=== PATIENT | female | born 1965 | race Caucasian/White ===

== ENCOUNTER → 2016-12-13 | Outpatient (CLI) | payer BC ==
[~2016-12-13] MED LIST: ALBUAER2 INH; AMLH/550 PO; CETITAB27 PO; EZET10TA41 PO; HYZ/50125 PO; LEVO88TA PO; NSNN50 NAE; POTA-327 PO; PRM625 PO; PROM25TA16; PRT40 PO; SYMIN160 INH; VALA500T39
--- NOTE | 2016-12-13 16:58 | DIAGNOSTIC IMAGING REPORT ---
ULTRASOUND RIGHT VENOUS DOPP LOWER EXT UNILAT CLINICAL HISTORY: Right leg swelling COMPARISON STUDY: No previous studies for comparison. FINDINGS: Real-time and color flow Doppler imaging were performed. Flow was seen within the femoral, popliteal and calf veins with no intraluminal thrombus demonstrated. The saphenous vein is patent. IMPRESSION: No evidence of right lower extremity DVT. Electronically signed by: Ismael Dickey M.D. 12/13/2016 4:57 PM Dictated Date/Time: 12/13/2016 4:56 PM
[2016-12-13 17:03] LABS: URINE APPEARANCE CLEAR (CLEAR); URINE BILIRUBIN NEG (NEG); URINE COLOR YELLOW; URINE NITRITE NEG (NEG); URINE SPECIFIC GRAVITY 1.017 (1.000-1.030); UROBILINOGEN NEG (NEG)
[2016-12-13 17:05] LABS: MANUAL MICROSCOPIC REQUIRED? NO; REVIEW REQ? NO
[2016-12-13 17:15] LABS: BLOOD UREA NITROGEN 14 mg/dl (7-18); BUN/CREATININE RATIO 23.9 (10-20); CALCIUM 8.7 mg/dl (8.5-10.1); CARBON DIOXIDE 28 mmol/L (21-32); CHLORIDE 106 mmol/L (98-107); GLUCOSE 86 mg/dl (70-99); POTASSIUM 3.9 mmol/L (3.5-5.1); SODIUM 142 mmol/L (136-145)
== END | disposition home or self-care (01) ==
LOC: C.ULTR 16:12
PROVIDERS: ATTEND Allergy & Immunology Allergy
DX: M79.606 Pain in leg, unspecified (principal); M79.89 Other specified soft tissue disorders; R25.2 Cramp and spasm; R10.9 Unspecified abdominal pain

== ENCOUNTER → 2016-12-19 | Outpatient (CLI) | payer BC ==
--- NOTE | 2016-12-19 13:12 | DIAGNOSTIC IMAGING REPORT ---
KUB HISTORY: N20.0 [id number] COMPARISON: KUB 02/28/2016. FINDINGS: The bowel gas pattern is unremarkable. There are no dilated loops of small bowel to suggest an obstruction. No change in the bilateral nephrolithiasis. Dominant stone within the lower pole of the right kidney measures 5 mm. No ureteral or bladder calculi. Multiple pelvic surgical clips as well as suture material is again noted. No pneumoperitoneum or pneumatosis. IMPRESSION: Stable bilateral nephrolithiasis. Electronically signed by: Tanmay Caraballo M.D. 12/19/2016 1:10 PM Dictated Date/Time: 12/19/2016 1:09 PM
== END | disposition home or self-care (01) ==
LOC: C.RAD 12:42
PROVIDERS: ATTEND Urology
DX: N20.0 Calculus of kidney (principal)

== ENCOUNTER → 2017-01-14 | Outpatient (CLI) | payer BC | END | disposition home or self-care (01) | LOC: C.LAB 17:07 | PROVIDERS: ATTEND Nurse Practitioner Family | DX: N20.0 Calculus of kidney (principal); R33.9 Retention of urine, unspecified ==

== ENCOUNTER → 2017-01-19 | Outpatient (CLI) | payer BC ==
[2017-01-19 09:18] LABS: BASO % 0.4 %; BASO ABS # 0.03 K/uL (0-0.2); COMPLETE YES; EOS % 5.1 %; HEMATOCRIT 38.9 % (37-47); IG% 0.1 %; LYMPH % 37.4 %; LYMPH ABS # 2.62 K/uL (1.2-3.4); MEAN CELL VOLUME 88.2 fL (80-100); MEAN CORPUSCULAR HEMOGLOBIN 30.4 pg (25-34); MEAN CORPUSCULAR HGB CONC 34.4 g/dl (32-36); MEAN PLATELET VOLUME 9.5 fL (7.4-10.4); MONO % 9.3 %; NEUT % 47.7 %; PLATELET COUNT 235 K/uL (130-400); RED BLOOD COUNT 4.41 M/uL (4.2-5.4)
[2017-01-19 10:12] LABS: ALT/SGPT 24 U/L (12-78); AST/SGOT 20 U/L (15-37); BLOOD UREA NITROGEN 13 mg/dl (7-18); BUN/CREATININE RATIO 17.5 (10-20); CALCIUM 8.7 mg/dl (8.5-10.1); CARBON DIOXIDE 31 mmol/L (21-32); CHLORIDE 107 mmol/L (98-107); CREATININE 0.77 mg/dl (0.60-1.20); GLUCOSE 93 mg/dl (70-99); POTASSIUM 3.7 mmol/L (3.5-5.1); SODIUM 145 mmol/L (136-145)
[2017-01-19 10:28] LABS: ALKALINE PHOSPHATASE 55 U/L (45-117); CHOLESTEROL 154 mg/dl (0-200); CHOLESTEROL/HDL RATIO 1.7; HDL CHOLESTEROL 93 mg/dl; LDL CHOLESTEROL CALCULATED 49 mg/dl; TRIGLYCERIDES 62 mg/dl (0-150); VERY LOW DENSITY LIPOPROT CALC 12 mg/dl
== END | disposition home or self-care (01) ==
LOC: C.LAB 08:38
PROVIDERS: ATTEND Internal Medicine Pulmonary Disease
DX: J45.909 Unspecified asthma, uncomplicated (principal); E78.00 Pure hypercholesterolemia, unspecified; I10 Essential (primary) hypertension; E03.9 Hypothyroidism, unspecified

== ENCOUNTER → 2017-07-03 | Outpatient (CLI) | payer BC | END | disposition home or self-care (01) | LOC: C.RDSM 15:55 | PROVIDERS: ATTEND Orthopaedic Surgery Sports Medicine | DX: M65.4 Radial styloid tenosynovitis [de Quervain] (principal); M25.512 Pain in left shoulder ==

== ENCOUNTER → 2017-09-13 | Outpatient (CLI) | payer BC ==
--- NOTE | 2017-09-16 07:49 | MAMMOGRAPHY REPORT ---
BILATERAL DIGITAL SCREENING MAMMOGRAM TOMOSYNTHESIS WITH CAD: 09/13/2017 CLINICAL HISTORY: Routine screening. Patient has no complaints. TECHNIQUE: Breast tomosynthesis in addition to standard 2D mammography was performed. Current study was also evaluated with a Computer Aided Detection (CAD) system. COMPARISON: Comparison is made to exams dated: 09/07/2016 mammogram, 09/23/2015 mammogram, 09/12/2015 ultrasound, 09/12/2015 mammogram, 09/05/2015 mammogram - [facility], and 02/04/2009. BREAST COMPOSITION: The tissue of both breasts is almost entirely fatty. FINDINGS: No suspicious masses, calcifications, or areas of architectural distortion are noted in ei ther breast. There has been no significant interval change compared to prior exams. Scattered bilat eral benign-appearing calcifications are not significantly changed. A biopsy marker clip is again no allison in the right upper outer quadrant. A biopsy marker clip is again noted in the left breast at víctor roximately 8:00. Prominent bilateral axillary lymph nodes are stable compared to multiple prior exam s including the 2009 and 2010 exams. IMPRESSION: ACR BI-RADS CATEGORY 2: BENIGN There is no mammographic evidence of malignancy. A 1 year screening mammogram is recommended. The pa tient will receive written notification of the results. Approximately 10% of breast cancers are not detected with mammography. A negative mammographic report should not delay biopsy if a clinically suggestive mass is present. Key Taveras M.D. /:09/13/2017 13:30:35 Rubber Engraver: Candace REYES,R, M, [facility] letter sent: Normal 1/2 BI-RADS Code: ACR BI-RADS Category 2: Benign
== END | disposition home or self-care (01) ==
LOC: C.MAMM 09:43
PROVIDERS: ATTEND Obstetrics & Gynecology
DX: Z12.31 Encounter for screening mammogram for malignant neoplasm of breast (principal)

== ENCOUNTER → 2017-11-07 | Outpatient (CLI) | payer BC ==
[2017-11-07 17:22] LABS: BASO % 0.5 %; BASO ABS # 0.03 K/uL (0-0.2); EOS ABS # 0.49 K/uL (0-0.5); HEMATOCRIT 39.7 % (37-47); HEMOGLOBIN 12.8 g/dL (12.0-16.0); IG# 0.01 K/uL (0.00-0.02); LYMPH % 44.3 %; LYMPH ABS # 2.73 K/uL (1.2-3.4); MEAN CORPUSCULAR HGB CONC 32.2 g/dl (32-36); MEAN PLATELET VOLUME 9.7 fL (7.4-10.4); MONO % 8.6 %; MONO ABS # 0.53 K/uL (0.11-0.59); NEUT % 38.4 %; NEUT ABS # 2.37 K/uL (1.4-6.5); PLATELET COUNT 260 K/uL (130-400); RED CELL DISTRIBUTION WIDTH CV 12.6 % (11.5-14.5); RED CELL DISTRIBUTION WIDTH SD 42.4 fL (36.4-46.3); WHITE BLOOD COUNT 6.16 K/uL (4.8-10.8)
[2017-11-07 17:51] LABS: ALBUMIN 3.2 gm/dl (3.4-5.0); ALT/SGPT 20 U/L (12-78); AST/SGOT 12 U/L (15-37); BLOOD UREA NITROGEN 14 mg/dl (7-18); CALCIUM 8.6 mg/dl (8.5-10.1); CARBON DIOXIDE 30 mmol/L (21-32); CREATININE 0.82 mg/dl (0.60-1.20); GLUCOSE 85 mg/dl (70-99); POTASSIUM 4.1 mmol/L (3.5-5.1); SODIUM 137 mmol/L (136-145)
[2017-11-07 18:02] LABS: ALKALINE PHOSPHATASE 57 U/L (45-117); TOTAL PROTEIN 6.7 gm/dl (6.4-8.2)
== END | disposition home or self-care (01) ==
LOC: C.LAB1850 16:24
PROVIDERS: ATTEND Internal Medicine Pulmonary Disease
DX: E03.9 Hypothyroidism, unspecified (principal)

== ENCOUNTER → 2018-05-22 | Outpatient (CLI) | payer BC ==
[~2018-05-22] MED LIST changes: -VALA500T39; +VALA500T41
--- NOTE | 2018-05-22 10:00 | DIAGNOSTIC IMAGING REPORT ---
R WRIST MIN 3 VIEWS ROUTINE CLINICAL HISTORY: M25.531,M25.532, M79.644,M79.645 pain COMPARISON: None. DISCUSSION: The bones and joint spaces appear intact. There is no evidence of fracture, dislocation or bony disease. There is no evidence for soft tissue swelling. IMPRESSION: Negative study. The above report was generated using voice recognition software. It may contain grammatical, syntax or spelling errors. Electronically signed by: Jaya Kebede M.D. 05/22/2018 9:59 AM Dictated Date/Time: 05/22/2018 9:57 AM
--- NOTE | 2018-05-22 10:03 | DIAGNOSTIC IMAGING REPORT ---
R HAND MIN 3 VIEWS ROUTINE CLINICAL HISTORY: 53 years-old Female presenting with M25.531,M25.532, M79.644,M79.645 bilateral hand pain and wrist and thumb pain. TECHNIQUE: Frontal, oblique, lateral views of the right hand were obtained. COMPARISON: Comparison made to plain radiographs of the left hand performed same day. FINDINGS: No acute fracture or malalignment. Joint space loss, central erosion, and osteophytosis at the distal interphalangeal joint of the fifth finger. No significant degenerative change in the carpus or at the first carpometacarpal joint. No radiographic soft tissue abnormality. 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 No acute osseous injury. Electronically signed by: Per Solorzano M.D. 05/22/2018 10:01 AM Dictated Date/Time: 05/22/2018 9:57 AM
--- NOTE | 2018-05-22 10:03 | DIAGNOSTIC IMAGING REPORT ---
L WRIST MIN 3 VIEWS ROUTINE CLINICAL HISTORY: M79.644 Pain of both [id number] Acute pain of both wrists COMPARISON: None. DISCUSSION: The bones and joint spaces appear intact. There is no evidence of fracture, dislocation or bony disease. There is no evidence for soft tissue swelling. IMPRESSION: Negative study. The above report was generated using voice recognition software. It may contain grammatical, syntax or spelling errors. Electronically signed by: Jaya Kebede M.D. 05/22/2018 10:01 AM Dictated Date/Time: 05/22/2018 10:00 AM
--- NOTE | 2018-05-22 10:05 | DIAGNOSTIC IMAGING REPORT ---
L HAND MIN 3 VIEWS ROUTINE CLINICAL HISTORY: M79.644 Pain of both thumbsBoth COMPARISON: None. DISCUSSION: The bones and joint spaces appear intact. There is no evidence of fracture, dislocation or bony disease. There is no evidence for soft tissue swelling. IMPRESSION: Negative study. The above report was generated using voice recognition software. It may contain grammatical, syntax or spelling errors. Electronically signed by: Jaya Kebede M.D. 05/22/2018 10:04 AM Dictated Date/Time: 05/22/2018 10:02 AM
== END | disposition home or self-care (01) ==
LOC: C.RAD1850 09:41
PROVIDERS: ATTEND Internal Medicine Pulmonary Disease
DX: M25.531 Pain in right wrist (principal); M25.532 Pain in left wrist; M79.644 Pain in right finger(s); M79.645 Pain in left finger(s)

== ENCOUNTER 2021-06-22 08:32 | Observation (INO) ==
--- NOTE | 2021-06-07 13:33 | PAT Medication Instructions ---
Medication Instructions Date of Service June 07, 2021 Home Medications Medication Instructions Recorded promethazine 25 mg tablet 25 mg PO Q6H PRN #60 tab 04/13/20 budesonide-formoterol HFA 160 2 puff INHALATION BID #3 inhaler 03/15/21 mcg-4.5 mcg/actuation aerosol inhaler pantoprazole 40 mg tablet,delayed 40 mg PO QAM #90 tab 06/06/21 release albuterol sulfate 90 mcg/actuation aerosol inhaler 2 puffs INHALATION Q4H PRN mometasone 50 mcg/actuation nasal spray (Nasonex) 2 sprays INTNAS DAILY PRN multivitamin (Daily Multi-Vitamin) 1 tab PO QPM sulfacetamide sodium 10 % eye drops 2 drp OP .INSTILL 2 DROP 4 eliot PRN aspirin 81 mg tablet,delayed release 81 mg PO QPM valacyclovir 500 mg tablet 500 mg PO BID PRN ] promethazine 25 mg tablet 25 mg PO Q6H PRN ascorbic acid (vitamin C) 1,000 mg tablet (Vitamin C) 1 g PO QPM biotin 5,000 mcg disintegrating tablet 5,000 mcg PO QPM cetirizine 5 mg-pseudoephedrine ER 120 mg tablet,extended release,12hr (Zyrtec- D) 1 tab PO Q12H PRN conjugated estrogens 0.625 mg tablet (Premarin) 0.625 mg PO QPM cyanocobalamin (vitamin B-12) 1,000 mcg tablet 1,000 mcg PO QPM meloxicam 15 mg tablet 15 mg PO QPM omega 9-bqs-zsd-fish oil 1,000 mg (120 mg-180 mg) capsule (Fish Oil) 1 cap PO QPM vitamin A 2,400 mcg capsule 8,000 unit PO QPM budesonide-formoterol HFA 160 mcg-4.5 mcg/actuation aerosol inhaler 2 puff INHALATION BID amiloride 5 mg-hydrochlorothiazide 50 mg tablet 1 tab PO QAM ezetimibe 10 mg-simvastatin 40 mg tablet 1 tab PO PM famotidine 20 mg tablet 20 mg PO HS levothyroxine 88 mcg tablet 88 mcg PO QAM losartan 50 mg tablet 50 mg PO PM potassium chloride 10 mEq tablet,extended release 10 meq PO PM pantoprazole 40 mg tablet,delayed release 40 mg PO QAM ASK your surgeon for instructions meloxicam 15 mg tablet 15 mg PO QPM ASK your prescriber and surgeon aspirin 81 mg tablet,delayed release 81 mg PO QPM STOP taking 2 weeks before surgery biotin 5,000 mcg disintegrating tablet 5,000 mcg PO QPM omega 4-hbf-juk-fish oil 1,000 mg (120 mg-180 mg) capsule (Fish Oil) 1 cap PO QPM vitamin A 2,400 mcg capsule 8,000 unit PO QPM DO NOT take the morning of surgery cetirizine 5 mg-pseudoephedrine ER 120 mg tablet,extended release,12hr (Zyrtec- D) 1 tab PO Q12H PRN amiloride 5 mg-hydrochlorothiazide 50 mg tablet 1 tab PO QAM Take morning of surgery With a small sip of water, OTHERWISE NOTHING TO EAT OR DRINK AFTER MIDNIGHT: albuterol sulfate 90 mcg/actuation aerosol inhaler 2 puffs INHALATION Q4H PRN (use if needed; please bring with you to hospital day of surgery if possible) mometasone 50 mcg/actuation nasal spray (Nasonex) 2 sprays INTNAS DAILY PRN (if needed) sulfacetamide sodium 10 % eye drops 2 drp OP .INSTILL 2 DROP 4 times PRN (if needed) valacyclovir 500 mg tablet 500 mg PO BID PRN (if needed) promethazine 25 mg tablet 25 mg PO Q6H PRN (if needed) budesonide-formoterol HFA 160 mcg-4.5 mcg/actuation aerosol inhaler 2 puff INHALATION BID levothyroxine 88 mcg tablet 88 mcg PO QAM pantoprazole 40 mg tablet,delayed release 40 mg PO QAM Take evening before surgery albuterol sulfate 90 mcg/actuation aerosol inhaler 2 puffs INHALATION Q4H PRN (if needed) mometasone 50 mcg/actuation nasal spray (Nasonex) 2 sprays INTNAS DAILY PRN (if needed) multivitamin (Daily Multi-Vitamin) 1 tab PO QPM sulfacetamide sodium 10 % eye drops 2 drp OP .INSTILL 2 DROP 4 times PRN (if needed) valacyclovir 500 mg tablet 500 mg PO BID PRN (if needed) promethazine 25 mg tablet 25 mg PO Q6H PRN (if needed) ascorbic acid (vitamin C) 1,000 mg tablet (Vitamin C) 1 g PO QPM cetirizine 5 mg-pseudoephedrine ER 120 mg tablet,extended release,12hr (Zyrtec- D) 1 tab PO Q12H PRN (if needed) conjugated estrogens 0.625 mg tablet (Premarin) 0.625 mg PO QPM (unless surgeon directs otherwise) cyanocobalamin (vitamin B-12) 1,000 mcg tablet 1,000 mcg PO QPM budesonide-formoterol HFA 160 mcg-4.5 mcg/actuation aerosol inhaler 2 puff INHALATION BID ezetimibe 10 mg-simvastatin 40 mg tablet 1 tab PO PM famotidine 20 mg tablet 20 mg PO HS losartan 50 mg tablet 50 mg PO PM potassium chloride 10 mEq tablet,extended release 10 meq PO PM Other Notes If you have any questions please call us at [phone] or [phone] or [phone] or [phone]
--- NOTE | 2021-06-08 15:04 | Anesthesiology Consultation ---
Date of Service June 08, 2021 Assessment & Plan (1) Encounter for pre-operative examination: Chart Review Chart Review: Acceptable Risk for Surgery (pending preop Covid testing results ) and Patient seen in Pre Admission Testing Per PAT appt on 06/08/21, patient was recently at [facility] wears mask in public. No known Covid positive contacts or Covid related symptoms. No known Covid infection in the past 90 days. Pt is vaccinated for Covid. Preop Covid testing scheduled 06/20/21 = will await results. Educated on importance of self quarantining, social distancing and wearing mask in public for the patient one week prior to surgery and after Covid testing done Teaching & Discussion Pre-Anesthesia Teaching/Discussion Notes: Instructed NPO after midnight before surgery,except medications with 15 cc of water. Medication instructions provided according to the PAT guidelines. History Surgery Operation Date: 06/22/21 07:30 Proposed Procedures p Cystoscopy, Ureteronephroscopy, Retrograde Pyelogram, With Possible Ureteral Dilation, Laser Destruction or Extraction of the Stone, Insertion or Exchange of Stent Catheter - Right - Domingo Laird MD Height/Weight Height: 5 ft 3 in Weight: 81.7 kg Allergies Allergy/AdvReac Type Severity Reaction Status Date / Time amoxicillin Allergy Severe Difficulty Verified 05/29/21 15:52 Breathing azithromycin Allergy Severe Difficulty Verified 05/29/21 15:52 Breathing Iodinated Contrast Media Allergy Severe Difficulty Verified 05/29/21 15:52 Breathing codeine AdvReac Intermediate PT. GETS Verified 05/29/21 15:52 HYPER metronidazole [From Flagyl] AdvReac Mild Nausea Verified 05/29/21 15:52 Medications Home Medications Medication Instructions Recorded Confirmed Last Taken albuterol sulfate 90 mcg/actuation 2 puffs INHALATION Q4H PRN gm 05/15/19 Unknown aerosol inhaler mometasone 50 mcg/actuation nasal 2 sprays INTNAS DAILY PRN 05/15/19 05/29/21 Unknown spray (Nasonex) multivitamin (Daily Multi-Vitamin) 1 tab PO QPM 05/15/19 05/29/21 05/10/20 21:00 sulfacetamide sodium 10 % eye drops 2 drp OP .INSTILL 2 DROP 4 eliot PRN 05/15/19 05/29/21 05/10/20 08:00 #15 ml aspirin 81 mg tablet,delayed 81 mg PO QPM tab 06/26/19 05/29/21 05/10/20 21:00 release valacyclovir 500 mg tablet 500 mg PO BID PRN #10 tab 06/26/19 05/29/21 Unknown promethazine 25 mg tablet 25 mg PO Q6H PRN #60 tab 04/13/20 05/29/21 05/11/20 06:00 ascorbic acid (vitamin C) 1,000 mg 1 g PO QPM 05/02/20 05/29/21 05/10/20 08:00 tablet (Vitamin C) biotin 5,000 mcg disintegrating 5,000 mcg PO QPM 05/02/20 05/29/21 05/10/20 21:00 tablet cetirizine 5 mg-pseudoephedrine ER 1 tab PO Q12H PRN 05/02/20 05/29/21 05/10/20 08:00 120 mg tablet,extended release,12hr (Zyrtec-D) conjugated estrogens 0.625 mg 0.625 mg PO QPM 05/02/20 05/29/21 05/10/20 21:00 tablet (Premarin) cyanocobalamin (vitamin B-12) 1,000 mcg PO QPM 05/02/20 05/29/21 05/10/20 21:00 1,000 mcg tablet meloxicam 15 mg tablet 15 mg PO QPM 05/02/20 05/29/21 05/10/20 21:00 omega 3-bkk-tqk-fish oil 1,000 mg 1 cap PO QPM 05/02/20 05/29/21 05/10/20 21:00 (120 mg-180 mg) capsule (Fish Oil) vitamin A 2,400 mcg capsule 8,000 unit PO QPM 05/02/20 05/29/21 05/10/20 21:00 budesonide-formoterol HFA 160 2 puff INHALATION BID #3 inhaler 03/15/21 05/29/21 Unknown mcg-4.5 mcg/actuation aerosol inhaler amiloride 5 mg-hydrochlorothiazide 1 tab PO QAM 05/29/21 05/29/21 Unknown 50 mg tablet ezetimibe 10 mg-simvastatin 40 mg 1 tab PO PM 05/29/21 05/29/21 Unknown tablet famotidine 20 mg tablet 20 mg PO HS 05/29/21 05/29/21 Unknown levothyroxine 88 mcg tablet 88 mcg PO QAM 05/29/21 05/29/21 Unknown losartan 50 mg tablet 50 mg PO PM 05/29/21 05/29/21 Unknown potassium chloride 10 mEq 10 meq PO PM 05/29/21 05/29/21 Unknown tablet,extended release pantoprazole 40 mg tablet,delayed 40 mg PO QAM #90 tab 06/06/21 Unknown release Past Medical History Medical History Asthma USED RESCUE INHALER LAST 3 WEEKS AGO Well controlled and stable with Symbicort Chronic nausea Environmental and seasonal allergies GERD (gastroesophageal reflux disease) Well controlled and stable Hx of cold sores No recent issues Hx of endometriosis S/p hysterectomy Still had additional laparoscopies post hysterectomy Symptoms currently stable Hx of vertigo Hyperlipidemia Hypertension Hypothyroidism Other amnesia 2010 RAPID TRANSIENT AMNESIA No issues since that time Exercise / Class Metabolic Activity II 4-5 Yardwork/Stairs/Walk up hill (one flight of stairs - no chest pain or SOB ) Past Family History Family History Mother Diabetes High cholesterol Hypertension Family history of diabetes mellitus Father Diabetes High cholesterol Cardiac disorder Hypertension Family history of diabetes mellitus Sister High cholesterol Hypertension Grandmother Diabetes High cholesterol Cardiac disorder Hypertension Grandfather High cholesterol Hypertension Past Surgical History Surgical History H/O laparoscopy History of appendectomy History of arthroscopy RT KNEE History of bilateral salpingo-oophorectomy History of bladder surgery BLADDER SLING History of colonoscopy History of cystoscopy MULTIPLE TIMES History of endoscopic sinus surgery History of lithotripsy History of partial hysterectomy Hx of ovarian cystectomy Nausea and vomiting after administration of anesthetic agent SLOW WAKING UP S/P correction of deviated nasal septum S/P partial colectomy D/T ENDOMETRIOSIS (MULTIPLE CLAMPS IN COLON PRESENTLY) Past Anesthesia History No Hx of Anesthesia Complications (with exception to PONV ; pt also admits to grogginess post op- no reintubation or ICU stay ) and No Family Hx of Anesthesia Complications (with exception to father - slow to wake up- no reintubation or ICU stay ) History of PONV No Hx of Motion Sickness and History of PONV (significant; declines scop patch at this time ) Social History Smoking Status: Never smoker Do You Dip or Chew Tobacco: No Hx Alcohol Use: No Hx Substance Use: No substance use type: does not use Review of Systems Hx of apnea prior to nasal surgery - no definitive dx of sleep apnea- no issues since nasal surgery. Patient denies chest pain, shortness of breath, dyspnea on exertion, cough, wheezing, palpitations. No hx of seizures, stroke, CT. No hx of blood clots or blood transfusions Physical Exam Vital Signs VITALS BP 121/68 P 53 TEMP 97.7 SP02 95% RESP 16 Constitutional no acute distress ENMT Mouth: no TMJ clicking Thyromental Distance: > or= 3.5 Finger Breadths (3.5) Mallampati Class: II Neck neck extension not limited Respiratory normal respiratory effort; no respiratory distress Auscultation: lungs clear to auscultation bilaterally; no wheezes Cardiovascular Rate/Rhythm: regular rate and regular rhythm Heart Sounds: no murmur Vessels: no carotid bruit Musculoskeletal Spine: no pain with cervical ROM Extremities: extremities normal to inspection Psychiatric Orientation: alert Lab Results Anesthesia Preop Results Results Anesthesia Widget: WBC 6.35 K/uL (4.8-10.8) 06/08/21 Hgb 13.3 g/dL (12.0-16.0) 06/08/21 Hct 40.5 % (37-47) 06/08/21 Plt 318 K/uL (130-400) 06/08/21 Na 141 mmol/L (136-145) 06/08/21 K 4.5 mmol/L (3.5-5.1) 06/08/21 Cl 108 mmol/L (98-107) H 06/08/21 CO2 31 mmol/L (21-32) 06/08/21 BUN 14 mg/dl (7-18) 06/08/21 Creat 0.75 mg/dl (0.6-1.2) 06/08/21 Glucose Level 88 mg/dl (70-99) 06/08/21 Testing Laboratory Results 05/18/21= UA: Negative Electrocardiogram Date: 06/08/21 Findings: + SB @ (57bpm ) Otherwise normal EKG per cardio Chest X-Ray Date: 06/08/21 Findings: + NAD
[~2021-06-22 08:32] MED LIST changes: -ALBUAER2 INH; -AMLH/550 PO; -CETITAB27 PO; +CIPROFLOXACIN / D5W 400 MG/200 ML BAG IV SCH; -EZET10TA41 PO; -HYZ/50125 PO; +LACTATED RINGER'S 1,000 ML IV SCH; -LEVO88TA PO; -NSNN50 NAE; -POTA-327 PO; -PRM625 PO; -PROM25TA16; -PRT40 PO; -SYMIN160 INH; -VALA500T41
[2021-06-22] MEDS ORDERED: DEXAMETHASONE SOD INJ 4 MG/ML VIAL ONE (09:29)
[2021-06-22] MEDS ORDERED: PROPOFOL IV EMULSION 10 MG/ML 20 ML VIAL IV ONE (09:29)
[2021-06-22] MEDS ORDERED: ePHEDrine sulfate 50 MG/ML SYR ONE (09:29)
[2021-06-22] MEDS ORDERED: LIDOCAINE 2% 2 ML VIAL/AMP(20MG/ML) INFIL ONE (09:29)
[2021-06-22] MEDS ORDERED: PHENYLEPHRINE 100MCG/ML 5ML SYR ONE (09:29)
[2021-06-22] MEDS ORDERED: fentaNYL citrate 100 MCG/2 ML VIAL ONE (09:29)
[2021-06-22] MEDS ORDERED: MIDAZOLAM HCL 1 MG/ML 2ML VIAL ONE (09:29)
[2021-06-22] MEDS ORDERED: ONDANSETRON INJ 2 MG/ML 2 ML VIAL ONE (09:29)
--- NOTE | 2021-06-22 09:47 | History & Physical Report ---
Date of Service June 22, 2021 Assessment & Plan (1) Right ureteral calculus: (2) Nephrolithiasis: Plan: Plan for cysto, right ureteroscopy, laser lithotripsy, stent placement risks, benefits, and expectations reviewed History of Present Illness Primary Care Provider: Galdino Sanchez MD 56y/o female with a right ureteral calc and renal calc here for URS/LL/Stent Allergies Allergy/AdvReac Type Severity Reaction Status Date / Time amoxicillin Allergy Severe Difficulty Verified 06/22/21 09:05 Breathing azithromycin Allergy Severe Difficulty Verified 06/22/21 09:05 Breathing Iodinated Contrast Media Allergy Severe Difficulty Verified 06/22/21 09:05 Breathing codeine AdvReac Intermediate PT. GETS Verified 06/22/21 09:05 HYPER metronidazole [From Flagyl] AdvReac Mild Nausea Verified 06/22/21 09:05 Home Medications Medication Instructions Recorded Confirmed Type albuterol sulfate 90 mcg/actuation 2 puffs INHALATION Q4H PRN gm 05/15/19 06/22/21 History aerosol inhaler mometasone 50 mcg/actuation nasal 2 sprays INTNAS DAILY PRN 05/15/19 06/22/21 History spray (Nasonex) multivitamin (Daily Multi-Vitamin) 1 tab PO QPM 05/15/19 06/22/21 History sulfacetamide sodium 10 % eye drops 2 drp OP .INSTILL 2 DROP 4 eliot PRN 05/15/19 06/22/21 History #15 ml aspirin 81 mg tablet,delayed 81 mg PO QPM tab 06/26/19 06/22/21 History release valacyclovir 500 mg tablet 500 mg PO BID PRN #10 tab 06/26/19 06/22/21 History promethazine 25 mg tablet 25 mg PO Q6H PRN #60 tab 04/13/20 06/22/21 Rx ascorbic acid (vitamin C) 1,000 mg 1 g PO QPM 05/02/20 06/22/21 History tablet (Vitamin C) biotin 5,000 mcg disintegrating 5,000 mcg PO QPM 05/02/20 06/22/21 History tablet cetirizine 5 mg-pseudoephedrine ER 1 tab PO Q12H PRN 05/02/20 06/22/21 History 120 mg tablet,extended release,12hr (Zyrtec-D) conjugated estrogens 0.625 mg 0.625 mg PO QPM 05/02/20 06/22/21 History tablet (Premarin) cyanocobalamin (vitamin B-12) 1,000 mcg PO QPM 05/02/20 06/22/21 History 1,000 mcg tablet meloxicam 15 mg tablet 15 mg PO QPM 05/02/20 06/22/21 History omega 9-ygt-ytf-fish oil 1,000 mg 1 cap PO QPM 05/02/20 06/22/21 History (120 mg-180 mg) capsule (Fish Oil) vitamin A 2,400 mcg capsule 8,000 unit PO QPM 05/02/20 06/22/21 History budesonide-formoterol HFA 160 2 puff INHALATION BID #3 inhaler 03/15/21 06/22/21 Rx mcg-4.5 mcg/actuation aerosol inhaler amiloride 5 mg-hydrochlorothiazide 1 tab PO QAM 05/29/21 06/22/21 History 50 mg tablet ezetimibe 10 mg-simvastatin 40 mg 1 tab PO PM 05/29/21 06/22/21 History tablet levothyroxine 88 mcg tablet 88 mcg PO QAM 05/29/21 06/22/21 History losartan 50 mg tablet 50 mg PO PM 05/29/21 06/22/21 History potassium chloride 10 mEq 10 meq PO PM 05/29/21 06/22/21 History tablet,extended release pantoprazole 40 mg tablet,delayed 40 mg PO QAM #90 tab 06/06/21 06/22/21 Rx release famotidine 20 mg tablet See Rx Instructions .ROUTE 06/13/21 Rx .COMPLEX #90 tablet Past Med/Surg History Medical History Asthma USED RESCUE INHALER LAST 3 WEEKS AGO Well controlled and stable with Symbicort Chronic nausea Environmental and seasonal allergies GERD (gastroesophageal reflux disease) Well controlled and stable Hx of cold sores No recent issues Hx of endometriosis S/p hysterectomy Still had additional laparoscopies post hysterectomy Symptoms currently stable Hx of vertigo Hyperlipidemia Hypertension Hypothyroidism Other amnesia 2010 RAPID TRANSIENT AMNESIA No issues since that time Surgical History H/O laparoscopy History of appendectomy History of arthroscopy RT KNEE History of bilateral salpingo-oophorectomy History of bladder surgery BLADDER SLING History of colonoscopy History of cystoscopy MULTIPLE TIMES History of endoscopic sinus surgery History of lithotripsy History of partial hysterectomy Hx of ovarian cystectomy Nausea and vomiting after administration of anesthetic agent SLOW WAKING UP S/P correction of deviated nasal septum S/P partial colectomy D/T ENDOMETRIOSIS (MULTIPLE CLAMPS IN COLON PRESENTLY) Family History Mother Diabetes High cholesterol Hypertension Family history of diabetes mellitus Father Diabetes High cholesterol Cardiac disorder Hypertension Family history of diabetes mellitus Sister High cholesterol Hypertension Grandmother Diabetes High cholesterol Cardiac disorder Hypertension Grandfather High cholesterol Hypertension Social History Smoking Status: Never smoker Second Hand Exposure: No; Do You Dip or Chew Tobacco: No; Tobacco Cessation Education Requested by Patient: No Hx Alcohol Use: No Hx Substance Use: No Preferred Language: Liberian Communication Ability: Effective Certified Veterinary Technician Required: No Beliefs That Will Affect Care: None marital status: Current Living Situation: Family current occupational status: employed Other Information That Helps Us Care for You: No Feels Safe at Home: Yes Safety Concerns: Feels Safe At This Time Assistive Devices: Glasses Physical Exam Constitutional: well developed and well nourished Neck: neck nontender Respiratory: normal respiratory effort; no respiratory distress and does not use accessory muscles Cardiovascular: Rate/Rhythm: regular rate Vessels: radial pulses present Extremities: no edema Gastrointestinal (Abdomen): Inspection/Auscultation: abdomen normal to inspection Percussion/Palpation: abdomen soft; abdomen nontender and no guarding Musculoskeletal: Head/Neck/Chest: normocephalic and head atraumatic Extremities: extremities normal to inspection Skin: no rashes and no lesions Trauma: no evidence of skin trauma Neurologic: awake; not obtunded Speech / Cognition: normal speech Motor/Sensory: no tremor Psychiatric: Orientation: alert and oriented x 3 Lymphatic: no lymphadenopathy Results & Data ([facility]) Vital Signs (Past 12 Hours) Vital Signs Temp Pulse Resp BP Pulse Ox 06/22/21 09:20 36.6 C 60 18 154/79 H 100
[2021-06-22] MEDS ORDERED: SCOPOLAMINE 1 MG TDSY TD ONE ×2 (09:57→10:01)
[2021-06-22] MEDS ORDERED: ONDANSETRON INJ 2 MG/ML 2 ML VIAL IV PRN (10:01)
[2021-06-22] MEDS ORDERED: ePHEDrine sulfate 50 MG/ML AMP IV PRN (10:01)
[2021-06-22] MEDS ORDERED: ATROPINE SULFATE 0.1 MG/ML 10ML SYR IV PRN (10:01)
[2021-06-22] MEDS ORDERED: ACETAMINOPHEN 325 MG TAB PO PRN (10:58)
[2021-06-22] MEDS ORDERED: SODIUM CHLORIDE 0.9% 1000ML 1,000 ML IV SCH (11:00)
[2021-06-22] MEDS: fentaNYL citrate 100 MCG/2 ML VIAL IV PRN ×2 (11:20→11:54)
--- NOTE | 2021-06-22 11:21 | Operative Report ---
PG Post Operative Report Pre & Post Diagnosis Operation Date: 06/22/21 10:15 Pre-Op Diagnosis: Right ureteral calculus Post-Op Diagnosis: Right ureteral calculus I identified the patient and participated in the time-out.: Yes Procedure Operation Date: 06/22/21 10:15 Actual Procedures p Cystoscopy, Ureteronephroscopy, Laser Lithotripsy, Right Ureteral Stent(Right) - Domingo Laird MD Surgeon Travis Laird MD Pipe Coverer none Estimated Blood Loss 0 Findings Consistent with Post-Op Diagnosis Specimens Stone for chemical analysis Description of Procedure The patient was identified in the preoperative holding area, appropriate informed consents were reviewed and completed and the patient was transferred to the operative suite. Upon arrival, appropriate antibiotics and anesthesia were administered and the patient was placed in dorsal lithotomy position and prepped and draped in sterile fashion. To begin the case to pass a 22 [place] cystoscope with 30 degree lens. Of note she has a very small urethral prolapse/caruncle. Inspection of the bladder was conducted revealing a healthy-appearing mucosa with ureteral orifices in orthotopic position. She has some squamous metaplasia. I turned my attention to the right UO and cannulated with a sensor wire and withdrew the cystoscope. I then reentered with a semirigid ureteroscope which I guided into the distal right ureter. I encountered a black appearing calculus several centimeters above the UO. We fragmented this utilizing a 272 m laser fiber. I then irrigated all stone debris out of the ureter. I advanced the scope maximally confirming a clear ureter before placing a second wire through the scope and advancing that wire into the kidney. I exchanged the semirigid scope for a flexible scope and performed full renoscopy. 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 I treated 5 stones in total and fragmented all stones in the sizes deemed safe for spontaneous passage. Repeat renoscopy was conducted confirming a clear kidney as well as a careful exit ureteroscopy confirming a clear ureter. A 6 [place] by 24 cm double-J stent was placed without difficulty seeing a good curl in the kidney as well as the bladder. The case was concluded and she was reversed of anesthesia and taken to the recovery room in stable condition. Stone was collected and passed off the table for chemical analysis. I attest to the content of the Intraoperative Record and any orders documented therein. Any exceptions are noted below.
--- NOTE | 2021-06-22 11:44 | Fluoroscopy Report ---
FL KUB CLINICAL INDICATION: MN ^Cysto. TECHNIQUE: 2 views were obtained with the C-arm in the OR with the above procedure. Total fluoroscopy time was 10.1 seconds. Total skin dose was 1.92 mGy. Comparison: None available at the time of this dictation. FINDINGS/IMPRESSION: Multiple intraoperative images are seen for right-sided lithotripsy and stent pl acement. Please correlate with intraoperative fluoroscopy and operative report. ACT 112: Negative or not required by law. Electronically signed by: Hussain Butler M.D. 06/22/2021 11:43 AM
[2021-06-22] MEDS: KETOROLAC 30 MG/ML VIAL IV PRN (11:46)
[2021-06-22] MEDS ORDERED: PROMETHAZINE HCL 12.5 MG in SODIUM CHLORIDE 0.9% 50 ML IV ONE (12:00)
--- NOTE | 2021-06-22 12:34 | Anesthesiology Progress Note ---
Date of Service June 22, 2021 Anesthesia Post Procedure Vital Signs Vital Signs: Temp Pulse Pulse Resp BP BP Pulse Ox 06/22/21 12:20 36.4 C L 52 L 16 152/70 H 100 06/22/21 12:10 51 L 12 137/67 100 06/22/21 12:00 56 L 17 124/67 100 06/22/21 11:50 57 L 18 116/68 99 06/22/21 11:40 61 17 112/56 L 97 06/22/21 11:30 53 L 16 101/65 99 06/22/21 11:20 65 19 106/63 99 06/22/21 11:10 72 14 130/79 100 06/22/21 11:04 36.0 C L 89 14 142/83 H 100 06/22/21 09:20 36.6 C 60 18 154/79 H 100 Pain Intensity Right Abdomen: Pain Intensity: 6 Transfer of Care Handoff Completed per policy Notes Mental Status: alert / awake / arousable and participated in evaluation Patient Amnestic to Procedure: Yes Nausea / Vomiting: improving with treatment Pain: improving with treatment Airway Patency, RR, SpO2: stable & adequate BP & HR: stable & adequate Hydration State: stable & adequate Anesthetic Complications: no major complications apparent and Pt Satisfied with anesthetic care
[2021-06-22] MEDS: HYDROCODONE/ACETAMOPHEN 5/325MG TAB PO PRN ×2 (13:19→17:09)
[2021-06-22] MEDS ORDERED: PHENAZOPYRIDINE HCL 200 MG TAB PO STA (14:05)
[2021-06-22] MEDS ORDERED: PHENAZOPYRIDINE HCL 200 MG TAB ONE (14:06)
--- NOTE | 2021-06-22 14:11 | Anesthesiology Progress Note ---
Date of Service June 22, 2021 Anesthesia Post Procedure Vital Signs Vital Signs: Temp Pulse Pulse Resp BP BP Pulse Ox 06/22/21 13:25 36.6 C 68 18 105/74 100 06/22/21 12:55 61 18 125/70 100 06/22/21 12:26 36.3 C L 57 L 18 130/83 100 06/22/21 12:20 36.4 C L 52 L 16 152/70 H 100 06/22/21 12:10 51 L 12 137/67 100 06/22/21 12:00 56 L 17 124/67 100 06/22/21 11:50 57 L 18 116/68 99 06/22/21 11:40 61 17 112/56 L 97 06/22/21 11:30 53 L 16 101/65 99 06/22/21 11:20 65 19 106/63 99 06/22/21 11:10 72 14 130/79 100 06/22/21 11:04 36.0 C L 89 14 142/83 H 100 06/22/21 09:20 36.6 C 60 18 154/79 H 100 Pain Intensity Right Abdomen: Pain Intensity: 5 Transfer of Care Handoff Completed per policy Notes Mental Status: alert / awake / arousable and participated in evaluation Patient Amnestic to Procedure: Yes Nausea / Vomiting: adequately controlled Pain: adequately controlled Airway Patency, RR, SpO2: stable & adequate BP & HR: stable & adequate Hydration State: stable & adequate Anesthetic Complications: no major complications apparent and Pt Satisfied with anesthetic care
[2021-06-22] MEDS ORDERED: BELLADONNA/OPIUM SUPP 60 MG SUPP PR ONE (18:33)
[2021-06-22] MEDS ORDERED: PROMETHAZINE HCL 25 MG TAB PO PRN (18:33)
[2021-06-22] MEDS ORDERED: ALBUTEROL HFA 8 GM INHALER INH PRN (18:33)
[2021-06-22] MEDS: CHECK SCOPOLAMINE PATCH PLACEMENT SCH (18:41)
[2021-06-22] MEDS ORDERED: FLUTICASONE PROPIONATE NA SPR 16 GM BTL PRN (18:47)
[2021-06-22] MEDS: SODIUM CHLORIDE 0.9% 1000ML 1,000 ML IV SCH (19:30)
[2021-06-22] MEDS: MoRPHine SULFATE 2 MG/ML CARP IV PRN (20:59)
[2021-06-22] MEDS ORDERED: EZETIMIBE/SIMVASTATIN 10/40MG 1 TAB TAB PO SCH (21:00)
[2021-06-22] MEDS: ASPIRIN 81 MG ECTAB PO SCH (21:02)
[2021-06-22] MEDS: ESTROGENS, CONJUGATED 0.625 MG TAB PO SCH (21:03)
[2021-06-22] MEDS: MELOXICAM 7.5 MG TAB PO SCH (21:05)
[2021-06-22] MEDS: MULTIVITAMIN TAB PO SCH (21:05)
[2021-06-22] MEDS: LOSARTAN POTASSIUM 50 MG TAB PO SCH (21:05)
[2021-06-22] MEDS: POTASSIUM CHLORIDE 10 MEQ TABCR PO SCH (21:06)
[2021-06-22] MEDS: OXYBUTYNIN CHLORIDE 5 MG TAB PO SCH (21:06)
[2021-06-22] MEDS: EZETIMIBE 10 MG TABLET PO SCH (22:25)
[2021-06-22] MEDS: SIMVASTATIN 40 MG TAB PO SCH (22:25)
[2021-06-23] MEDS: CHECK SCOPOLAMINE PATCH PLACEMENT SCH ×4 (00:11→23:31)
[2021-06-23] MEDS: MoRPHine SULFATE 2 MG/ML CARP IV PRN ×4 (02:03→23:29)
[2021-06-23] MEDS: SODIUM CHLORIDE 0.9% 1000ML 1,000 ML IV SCH ×3 (02:03→17:16)
[2021-06-23] MEDS: LEVOTHYROXINE SODIUM 88 MCG TABLET PO SCH (06:15)
--- NOTE | 2021-06-23 08:17 | Urology Progress Note ---
Date of Service June 23, 2021 Assessment & Plan (1) Right ureteral calculus: (2) S/P ureteral stent placement: Plan: 56 yo F POD #1 s/p cystoscopy, right URS-LL, and stent placement admitted for post-operative pain. - Afebrile overnight - Continues to have moderate to severe right sided discomfort/spasms and dysuria secondary to ureteral stent - Pt utilizing IV Morphine overnight and this AM with moderate relief - Will continue supportive care and pain management - Discussed transition to PO medications to prepare for discharge hopefully later today - Continue prn analgesia, prn Oxybutynin for spasms, and order placed for prn Pyridium - Expected clinical course reviewed, all questions answered - Will arrange outpatient follow-up for stent removal Admission and Anticipated Discharge Date Admission Date: June 22, 2021 Supervising Physician Co-Signing Physician Notes Discussed patient and plan with ERIN. Agree with above. Subjective 56 yo F POD #1 s/p cystoscopy, right URS-LL, and stent placement admitted for post-operative pain. Patient awake and resting in bed. Continues to have moderate/severe right abdominal to flank discomfort, worse with movement or voiding. She utilized IV Morphine overnight/this AM with moderate relief, last dose at 0627. She notes episode of dry heaves at 0200 due to pain when getting out of bed. Endorses dysuria and hematuria. Tolerating PO diet. No nausea or vomiting at present. +Flatus. No fever or chills. Review of Systems Constitutional: as per Subjective / HPI Gastrointestinal: as per Subjective / HPI Genitourinary: as per Subjective / HPI Physical Exam Constitutional: well developed and well nourished; no acute distress and not ill appearing Respiratory: normal respiratory effort and able to speak in complete sentences; no respiratory distress and no labored breathing Cardiovascular: Extremities: no pedal edema Gastrointestinal (Abdomen): Inspection/Auscultation: abdomen normal to inspection; abdomen not distended Percussion/Palpation: + abdomen tender (mildly tender to palpation on right side) and abdomen soft; no guarding Musculoskeletal: Head/Neck/Chest: normocephalic and head atraumatic Skin: no rashes, warm and dry Neurologic: moves all extremities and awake Psychiatric: Orientation: alert and oriented x 3 Results & Data ([facility]) Vital Signs (Past 12 Hours) Vital Signs Temp Pulse Resp BP Pulse Ox 06/23/21 07:01 36.8 C 65 16 113/73 95 06/23/21 04:00 36.7 C 73 16 129/77 96 06/22/21 22:28 36.9 C 63 16 133/78 95 PG Care Time/CCT Total # of Minutes Spent Total Time Spent with Patient: Total time spent is greater than 50% in coordination of care (as documented) at patient's floor/unit and/or counseling patient: Coding Level of Care Code 46662 Subseq Hosp Care Lvl 2 Diagnoses Right ureteral calculus N20.1 S/P ureteral stent placement Z96.0
[2021-06-23] MEDS: OXYBUTYNIN CHLORIDE 5 MG TAB PO SCH ×2 (10:01→20:35)
[2021-06-23] MEDS: FLUTICASONE/VILANTEROL 100/25MCG 14 PUFFS/INHALER INH SCH (10:01)
[2021-06-23] MEDS: KETOROLAC 30 MG/ML VIAL IV PRN ×2 (10:01→15:10)
[2021-06-23] MEDS: PANTOprazole 40 MG TAB PO SCH (10:01)
[2021-06-23] MEDS: PHENAZOPYRIDINE HCL 200 MG TAB PO PRN ×3 (10:32→23:30)
[2021-06-23] MEDS: HYDROCODONE/ACETAMOPHEN 5/325MG TAB PO PRN ×2 (12:45→17:40)
[2021-06-23] MEDS: ASPIRIN 81 MG ECTAB PO SCH (20:32)
[2021-06-23] MEDS: EZETIMIBE 10 MG TABLET PO SCH (20:33)
[2021-06-23] MEDS: ESTROGENS, CONJUGATED 0.625 MG TAB PO SCH (20:33)
[2021-06-23] MEDS: MELOXICAM 7.5 MG TAB PO SCH (20:34)
[2021-06-23] MEDS: MULTIVITAMIN TAB PO SCH (20:34)
[2021-06-23] MEDS: LOSARTAN POTASSIUM 50 MG TAB PO SCH (20:34)
[2021-06-23] MEDS: POTASSIUM CHLORIDE 10 MEQ TABCR PO SCH (20:35)
[2021-06-23] MEDS: SIMVASTATIN 40 MG TAB PO SCH (20:36)
[2021-06-24] MEDS: SODIUM CHLORIDE 0.9% 1000ML 1,000 ML IV SCH (00:59)
[2021-06-24] MEDS: PHENAZOPYRIDINE HCL 200 MG TAB PO PRN (05:08)
[2021-06-24] MEDS: MoRPHine SULFATE 2 MG/ML CARP IV PRN (05:08)
[2021-06-24] MEDS: LEVOTHYROXINE SODIUM 88 MCG TABLET PO SCH (06:14)
[2021-06-24] MEDS: CHECK SCOPOLAMINE PATCH PLACEMENT SCH (08:06)
[2021-06-24] MEDS: KETOROLAC 30 MG/ML VIAL IV PRN (08:11)
[2021-06-24] MEDS: OXYBUTYNIN CHLORIDE 5 MG TAB PO SCH (08:12)
[2021-06-24] MEDS: PANTOprazole 40 MG TAB PO SCH (08:12)
[2021-06-24] MEDS: FLUTICASONE/VILANTEROL 100/25MCG 14 PUFFS/INHALER INH SCH (08:13)
--- NOTE | 2021-06-24 08:32 | Urology Progress Note ---
Date of Service June 24, 2021 Assessment & Plan (1) S/P ureteral stent placement: (2) Right ureteral calculus: Plan: 56 yo F POD #2 s/p cystoscopy, right URS-LL, and stent placement admitted for post-operative pain. - Afebrile overnight - Continues to have moderate to severe right sided discomfort/spasms and dysuria secondary to ureteral stent, but improving - Stable for discharge home today and patient expressed that she is ready to go home. -Prescribed additional 3 days of prednisone 10mg daily to help with inflammation/ureteral edema due to persistent discomfort. -Schedule for stent removal in clinic this upcoming Saturday -Discharge this AM Admission and Anticipated Discharge Date Admission Date: June 22, 2021 Subjective Continues to endorse right flank pain, but reports improvemment. Voiding spontaneously. Feels well enough to go home and would like to be discharged. Review of Systems Review of Systems: 14 point review of systems negative outside of what is listed above in HPI Physical Exam Physical Exam: General: Alert and oriented, no acute distress HEENT: Normocephalic, mucous membranes moist Cardiovascular: Regular rate Pulmonary: Nonlabored respirations Abdomen: Nondistended Extremities: Moves all 4 spontaneously Neuro: No gross deficits Skin: Warm, dry, no rashes noted Results & Data ([facility]) Vital Signs (Past 12 Hours) Vital Signs Temp Pulse Resp BP Pulse Ox 06/24/21 07:31 36.7 C 58 L 16 106/68 95 06/23/21 23:05 36.9 C 56 L 16 106/67 96 PG Care Time/CCT Total # of Minutes Spent Total Time Spent with Patient: Total time spent is greater than 50% in coordination of care (as documented) at patient's floor/unit and/or counseling patient: Coding [place] [address] Subseq Hosp Care Lvl 2 Patient Type Established History Expanded Problem Focused Exam Expanded Problem Focused Medical Decision Making Low Complexity Diagnoses S/P ureteral stent placement Z96.0 Right ureteral calculus N20.1
[2021-06-26 11:09] LABS: Component 2 DNR; Source RIGHT KIDNEY STONE
[2021-06-27] MEDS ORDERED: LR 500ML BOLUS, THEN 15ML/HR IV SCH (06:00)
--- NOTE | 2021-06-27 07:57 | Discharge Summary ---
Date of Service June 27, 2021 Admission HPI Per Admitting Provider 56y/o female with a right ureteral calc and renal calc here for URS/LL/Stent Principal Diagnosis kidney stone Discharge Data Allergies Allergy/AdvReac Type Severity Reaction Status Date / Time amoxicillin Allergy Severe Difficulty Verified 06/26/21 08:39 Breathing azithromycin Allergy Severe Difficulty Verified 06/26/21 08:39 Breathing Iodinated Contrast Media Allergy Severe Difficulty Verified 06/26/21 08:39 Breathing codeine AdvReac Intermediate PT. GETS Verified 06/26/21 08:39 HYPER metronidazole [From Flagyl] AdvReac Mild Nausea Verified 06/26/21 08:39 Procedures Performed Operation Date: 06/22/21 10:15 Actual Procedures p Cystoscopy, Ureteronephroscopy, Laser Lithotripsy, (Right) - Domingo Laird MD s Right Ureteral Stent(Right) - Domingo Laird MD Ordered Studies 06/22/21 FL KUB Routine Hospital Course (1) S/P ureteral stent placement: (2) Right ureteral calculus: admitted for stone treatment which was uneventful. significant stent related pain after the surgery. admitted for pain control and observation. progressed appropriately over the next 24-48 hours and was discharged in stable condition Total Time Total Time Spent Total Time Spent (In Minutes): 15 Discharge Plan Discharge Items Patient Disposition: Home - Self-Care Reason For Visit: Stones Discharge Diagnosis: stones Activity: Resume your previous activity Lifting: Gradually increase as tolerated Bathing: No limitations Sexual Activity: When tolerated Exercise/Sports: Gradually increase as tolerated Non-emergency contact: Primary Care Provider and Urologist Call non-emergency contact if: you have any medication questions, your pain is worsening, you have a fever and your temperature is above 101.5 Follow-up/Referrals: Galdino Sanchez MD [Primary Care Provider] - 06/29/21 10:45 am Domingo Laird MD [Physician] - 06/26/21 8:45 am (stent removal) Ant Wood MD [Physician] - 07/06/21 1:10 pm Diet: Regular Addtl Attending Provider Instructions: Please take all medications as prescribed and keep all follow-ups as scheduled. Please call our office at [phone] with any questions, concerns or need to reschedule appointments for any reason. We are happy to assist you. Please knot picker cloth your prescriptions at your pharmacy. Hold Meloxicam if you are taking Ketorolac. Do not take together. While you have a ureteral stent in place: Some discomfort is normal. Certain movements may trigger pain or a feeling that you need to urinate. You may also feel mild soreness or pressure before or during urination. These symptoms should go away a few days after the stent is removed. Your urine may be slightly pink or red. This is due to bleeding caused by minor irritation from the stent. This may happen on and off while you have the stent, it is not harmful and is to be expected. Medication to help minimize discomfort or bladder spasms, or to prevent infection may be prescribed. Take this as directed. Drink plenty of fluids to help flush out your urinary tract. If you go home with a catheter, wash with soapy water and a fresh washcloth twice daily. We recommend mild bar soap such as Dial or Dove. How long will you need a stent? An appointment should already be made for you for stent removal, unless directed otherwise. The stent is often taken out after the blockage in the ureter is treated or the ureter has healed. This may take 1-2 weeks, or longer. If a stent is needed for a longer period of time, it may need to be exchanged every few months. Likely prior to your followup appointment you will be asked to get an X-ray, please complete this the night before or morning of your appointment. When to call [facility] at [phone]: Your urine contains heavy blood clots You are constantly leaking urine Fever of 101F or higher, chills, nausea, or vomiting Your pain is not relieved with medication The end of the stent comes out of your urethra Pending Studies at Discharge: No Stand-Alone Forms: Anesthesia/Sedation, Adult, [facility] [place] [employer], Opioid Pain Management Medications and DC Order Prescriptions: New hydrocodone-acetaminophen 5-325 mg tablet 1 tab PO Q6H PRN (Reason: pain) Qty: 20 RF: 0 ciprofloxacin HCl [Cipro] 500 mg tablet 500 mg PO BID Qty: 6 RF: 0 oxybutynin chloride 5 mg tablet 5 mg PO TID PRN (Reason: bladder spasms) Qty: 12 RF: 0 phenazopyridine [Pyridium] 200 mg tablet 200 mg PO Q8H PRN (Reason: pain) Qty: 9 RF: 0 ketorolac 10 mg tablet 10 mg PO BID Qty: 7 RF: 0 prednisone 10 mg tablet 10 mg PO DAILY Qty: 3 RF: 0 Continued budesonide-formoterol 160-4.5 mcg/actuation HFA aerosol inhaler 2 puff inhalation BID Qty: 3 RF: 3 pantoprazole 40 mg tablet,delayed release (DR/EC) 40 mg PO QAM Qty: 90 RF: 3 famotidine 20 mg tablet See Rx Instructions .ROUTE .COMPLEX Qty: 90 RF: 3 promethazine 25 mg tablet 25 mg PO Q6H PRN (Reason: nausea and vomiting) Qty: 60 RF: 3 mometasone [Nasonex] 50 mcg/actuation spray,non-aerosol 2 sprays INTNAS DAILY PRN (Reason: Nasal Congestion) RF: 0 sulfacetamide sodium 10 % drops 2 drp OP .INSTILL 2 DROP 4 eliot PRN (Reason: ALLERGY RELIEF) Qty: 15 RF: 0 albuterol sulfate 90 mcg/actuation HFA aerosol inhaler 2 puffs inhalation Q4H PRN (Reason: shortness of breath or wheezing) RF: 0 multivitamin [Daily Multi-Vitamin] tablet 1 tab PO QPM RF: 0 aspirin 81 mg tablet,delayed release (DR/EC) 81 mg PO QPM RF: 0 valacyclovir 500 mg tablet 500 mg PO BID PRN (Reason: Cold Sores) Qty: 10 RF: 0 cetirizine-pseudoephedrine [Zyrtec-D] 5-120 mg Tablet Extended Release 12 Hr 1 tab PO Q12H PRN (Reason: ALLERGY RELIEF) RF: 0 ascorbic acid (vitamin C) [Vitamin C] 1,000 mg Tablet 1 g PO QPM RF: 0 vitamin A 8,000 unit Capsule 8,000 unit PO QPM RF: 0 meloxicam 15 mg Tablet 15 mg PO QPM RF: 0 cyanocobalamin (vitamin B-12) 1,000 mcg Tablet 1,000 mcg PO QPM RF: 0 Premarin 0.625 mg Tablet 0.625 mg PO QPM RF: 0 omega 6-uhc-ltf-fish oil [Fish Oil] 1,000 mg (120 mg-180 mg) Capsule 1 cap PO QPM RF: 0 biotin 5,000 mcg Tablet,Disintegrating 5,000 mcg PO QPM RF: 0 losartan 50 mg tablet 50 mg PO PM RF: 0 amiloride-hydrochlorothiazide 5-50 mg tablet 1 tab PO QAM RF: 0 potassium chloride 10 mEq tablet extended release 10 meq PO PM RF: 0 levothyroxine 88 mcg tablet 88 mcg PO QAM RF: 0 ezetimibe-simvastatin 10-40 mg tablet 1 tab PO PM RF: 0 Discharge Orders: Discharge Order (Routine); Ordered 06/24/21 Ordered By: Ant Cox/Other Patient Handouts: DVT Post Op Prevention Admission Data Admit Date/Time: 06/22/21 16:26 Attending Provider: Domingo Laird Admit Provider: Domingo Laird Primary Care Provider: Galdino Sanchez Other Interventions: Discharge Summary Assessment (RN) Last Done: 06/24/21 09:26 Coding Level of Care Code D/C DAY MANAGEMENT <30 MINS Diagnoses S/P ureteral stent placement Z96.0 Right ureteral calculus N20.1
== END 2021-06-24 11:40 | disposition home or self-care (01) ==
LOC: 3W 08:32 → ASU 08:32